=== PATIENT | male | born 1945 | race Caucasian/White ===

== ENCOUNTER → 2018-03-17 | Outpatient (CLI) | payer MEDICARE, OTHER ==
[~2018-03-17] MED LIST: COUMADIN 5 MG TA5 M1; LISINOPRIL40 MG PO; NORCO 5-325 TA1 EACH PO; OXYIR5 MG; TRAMADOL 50 MG50 MG PO
== END ==
LOC: M.MRI 06:58
DX: S83.242A Other tear of medial meniscus, current injury, left knee, initial encounter (principal); X58.XXXA Exposure to other specified factors, initial encounter; Y93.89 Activity, other specified; Y92.89 Other specified places as the place of occurrence of the external cause; Y99.8 Other external cause status